=== PATIENT | male | born 1965 | race Caucasian/White ===

== ENCOUNTER 2021-01-15 19:22 | Observation (INO) ==
[2021-01-15] MEDS ORDERED: Ondansetron 4 MG/2 ML VIAL IVP ONE (20:38)
[2021-01-15] MEDS ORDERED: 0.9 % Sodium Chloride 1,000 ML IVC ONE ×3 (20:38→22:40)
[2021-01-15 21:11] LABS: Basophils # 0.1 K/mcL (0.0-0.2); Basophils % 0.4 %; Eosinophils # 0.2 K/mcL (0.0-0.6); Hematocrit 44.7 % (37.5-50.1); Hemoglobin 15.1 g/dL (12.9-16.9); Immature Granulocytes % 0.7 % (0-4); Lymphocytes # 6.4 K/mcL (0.6-4.6); Lymphocytes % 44.2 %; Mean Corpuscular HGB Conc 33.8 g/dL (31.6-35.5); Mean Corpuscular Hemoglobin 31.2 pg (28.0-33.3); Mean Corpuscular Volume 92.4 fL (83.0-100.0); Mean Platelet Volume 9.9 fL (9.4-12.4); Monocytes # 0.9 K/mcL (0.0-1.3); Monocytes % 6.1 %; Neutrophils # 6.9 K/mcL (1.6-8.9); Nucleated Red Blood Cells 0.1 /100 WBC (0); Platelet Count 332 K/mcL (140-400); Red Blood Count 4.84 M/mcL (4.19-5.50); Red Cell Distribution Width 13.8 % (11.5-14.5); Segmented Neutrophils % 47.6 %; White Blood Count 14.5 K/mcL (4.3-11.1)
[2021-01-15 21:18] LABS: Prothrombin Time 11.9 Seconds (9.4-12.1)
[2021-01-15 21:50] LABS: Platelet Estimate Normal (Normal); Reactive Lymphocytes Present (Not Present)
[2021-01-15 22:26] LABS: Albumin 3.2 g/dL (3.5-5.7); Albumin/Globulin Ratio 1.5 (1.1-2.2); Bilirubin,Total 0.3 mg/dL (0.3-1.0); Calcium 8.2 mg/dL (8.6-10.3); Globulin 2.1 g/dL (2.4-3.5); Potassium 4.4 mEq/L (3.5-5.1); Total Protein 5.3 g/dL (6.4-8.9)
[2021-01-15 22:58] LABS: Bilirubin,Urine Negative (Negative); Blood,Urine Trace (Negative); Calcium Oxalate Crystals,Urine Present; Clarity,Urine Turbid (Clear); Color,Urine Yellow (Yellow); Glucose,Urine (UA) Normal (Normal); Hyaline Casts,Urine Many per lpf (None Seen); Ketones,Urine Negative (Negative); Leukocyte Esterase,Urine Moderate (Negative); Mucus,Urine Few per lpf (None-Few); Nitrite,Urine Negative (Negative); PH,Urine 5.5 pH Units (5.0-8.0); Protein,Urine 50 mg/dL (Neg-Trace); RBC,Urine 0-3 per hpf (0-3); Specific Gravity,Urine 1.017 (1.010-1.025); Squamous Epithelial Cell,Urine Few per hpf (None-Few); Urobilinogen,Urine Normal (Normal); WBC,Urine 15-30 per hpf (0-3)
[2021-01-15] MEDS ORDERED: 0.9 % Sodium Chloride 1,000 ML IVC SCH (23:15)
[2021-01-16] MEDS ORDERED: Acetaminophen 325 MG TABLET PO PRN (01:33)
[2021-01-16] MEDS ORDERED: Ondansetron 4 MG/2 ML VIAL IVP PRN (01:33)
[2021-01-16] MEDS ORDERED: Naloxone 0.4 MG/ML INJ IVP PRN (01:33)
[2021-01-16] MEDS: 0.9 % Sodium Chloride 1,000 ML IVC SCH ×3 (02:19→19:45)
[2021-01-16] MEDS ORDERED: Dextrose Gel 15 GM/37.5 ML TUBE PO PRN ×2 (02:29)
[2021-01-16] MEDS ORDERED: *HR* Dextrose 50 % in Water (Vial) 50 ML VIAL IVP PRN (02:29)
[2021-01-16] MEDS ORDERED: D5% in Water 1,000 ML IVC PRN (02:29)
[2021-01-16 02:56] LABS: Adenovirus Not Detected (Not Detect); Bordetella Pertussis Not Detected (Not Detect); Chlamydophila pneumoniae Not Detected (Not Detect); Coronavirus 229E Not Detected (Not Detect); Coronavirus HKU1 Not Detected (Not Detect); Coronavirus NL63 Not Detected (Not Detect); Coronavirus OC43 Not Detected (Not Detect); Human Metapneumovirus Not Detected (Not Detect); Human Rhinovirus/Enterovirus Not Detected (Not Detect); Influenza A Subtype 2009 H1 Not Detected (Not Detect); Influenza B Not Detected (Not Detect); Mycoplasma pneumoniae Not Detected (Not Detect); Parainfluenza Virus 1 Not Detected (Not Detect); Parainfluenza Virus 2 Not Detected (Not Detect); Parainfluenza Virus 3 Not Detected (Not Detect); Parainfluenza Virus 4 Not Detected (Not Detect); Respiratory Syncytial Virus Not Detected (Not Detect); SARS-CoV-2 Not Detected (Not Detect)
[2021-01-16 08:37] LABS: Calcium 8.3 mg/dL (8.6-10.3); Magnesium 1.5 mg/dL (1.6-2.6); Phosphorous 3.4 mg/dL (2.7-4.5); Potassium 4.5 mEq/L (3.5-5.1)
[2021-01-16 08:50] LABS: Thyroid Stimulating Hormone 3.401 mcIU/mL (0.340-5.600)
[2021-01-16 09:26] LABS: Basophils # 0.1 K/mcL (0.0-0.2); Basophils % 0.5 %; Eosinophils # 0.1 K/mcL (0.0-0.6); Eosinophils % 1.2 %; Hematocrit 41.4 % (37.5-50.1); Hemoglobin 13.8 g/dL (12.9-16.9); Immature Granulocytes % 0.2 % (0-4); Lymphocytes # 4.8 K/mcL (0.6-4.6); Lymphocytes % 50.9 %; Mean Corpuscular HGB Conc 33.3 g/dL (31.6-35.5); Mean Corpuscular Hemoglobin 31.7 pg (28.0-33.3); Mean Corpuscular Volume 95.2 fL (83.0-100.0); Mean Platelet Volume 10.2 fL (9.4-12.4); Monocytes # 0.6 K/mcL (0.0-1.3); Monocytes % 6.3 %; Neutrophils # 3.8 K/mcL (1.6-8.9); Platelet Count 285 K/mcL (140-400); Red Blood Count 4.35 M/mcL (4.19-5.50); Red Cell Distribution Width 13.8 % (11.5-14.5); Segmented Neutrophils % 40.9 %; White Blood Count 9.4 K/mcL (4.3-11.1)
[2021-01-16] MEDS: Insulin LISPRO 300 UNITS/3 ML VIAL SUBQ SCH ×3 (10:07→16:35)
[2021-01-16] MEDS: Nicotine 7 MG PATCH.TD24 TD SCH (10:11)
[2021-01-16] MEDS: cefTRIAXone 1,000 MG in 0.9 % Sodium Chloride Mini Bag 100 ML IVPB SCH (10:11)
[2021-01-16] MEDS ORDERED: Insulin LISPRO 300 UNITS/3 ML VIAL SUBQ SCH (21:00)
[2021-01-17 01:18] LABS: Hematocrit 44.5 % (37.5-50.1); Hemoglobin 14.9 g/dL (12.9-16.9); Mean Corpuscular HGB Conc 33.5 g/dL (31.6-35.5); Mean Corpuscular Hemoglobin 31.4 pg (28.0-33.3); Mean Corpuscular Volume 93.7 fL (83.0-100.0); Mean Platelet Volume 10.1 fL (9.4-12.4); Platelet Count 316 K/mcL (140-400); Red Blood Count 4.75 M/mcL (4.19-5.50); White Blood Count 11.7 K/mcL (4.3-11.1)
[2021-01-17 01:46] LABS: Potassium 4.8 mEq/L (3.5-5.1)
[2021-01-17] MEDS: 0.9 % Sodium Chloride 1,000 ML IVC SCH (04:13)
[2021-01-17] MEDS: Insulin LISPRO 300 UNITS/3 ML VIAL SUBQ SCH (07:47)
[2021-01-17 08:31] VITALS: BP 127/66
[2021-01-17] MEDS: cefTRIAXone 1,000 MG in 0.9 % Sodium Chloride Mini Bag 100 ML IVPB SCH (08:33)
[2021-01-17] MEDS: Nicotine 7 MG PATCH.TD24 TD SCH (08:33)
[2021-01-17] MEDS ORDERED: BuPROPion XL (24 HR) 150 MG TABLET PO SCH (09:00)
[2021-01-17] MEDS ORDERED: Budesonide/Formoterol 160/4.5 1 PUFF INH IH SCH (10:00)
== END 2021-01-17 09:35 | disposition home or self-care (01) ==
LOC: CDU 19:22 → EMEROOARM 19:22 → SUATTDRO 23:18 → CDU 01-16 00:17
PROVIDERS: ADMIT Student in an Organized Health Care Education/Training Program; ATTEND Family Medicine